=== PATIENT | female | born 1970 | race Two or more races ===

== ENCOUNTER 2021-08-14 06:43 | Day surgery (SDC) | payer OTHER | END 2021-08-14 12:00 | disposition home or self-care (01) | LOC: AMB-ENDOS 06:43 → CIR.AMB 14:00 | PROVIDERS: ATTEND Surgery | DX: R19.4 Change in bowel habit (principal); R14.0 Abdominal distension (gaseous); K30 Functional dyspepsia; K21.9 Gastro-esophageal reflux disease without esophagitis; N94.5 Secondary dysmenorrhea; I10 Essential (primary) hypertension; E03.9 Hypothyroidism, unspecified ==

== ENCOUNTER 2021-08-26 12:45 | Inpatient (IN) | payer OTHER ==
[~2021-08-26] VITALS: Ht 157.5 cm; Wt 0.5 kg
[2021-08-26] MEDS ORDERED: TENORMIN50 M1 PO (15:23)
[2021-08-26] MEDS ORDERED: ZOLOFT50 MG PO (15:23)
[2021-09-07] MEDS ORDERED: ACETAMINOPHEN-1 EAC2 PO (10:29)
[2021-09-07] MEDS ORDERED: CELEBREX200MG PO (10:30)
[2021-09-07] MEDS ORDERED: COLACE100 MG PO (10:30)
[2021-09-07] MEDS ORDERED: TANDEM PLUS CA1 EACH PO (10:32)
== END 2021-09-07 11:38 | disposition home or self-care (01) | DRG 743 ==
LOC: OB/GYN 08-29 09:45 → EDBD 08-29 12:45 → OB/GYN 08-29 12:45 → O/R 09-05 06:42 → OB/GYN 09-05 11:50
PROVIDERS: ADMIT Obstetrics & Gynecology; ATTEND Obstetrics & Gynecology
PROC: 0UT7FZZ Resection of Bilateral Fallopian Tubes, Via Natural or Artificial Opening With Percutaneous Endoscopic Assistance (ICD-10-PCS; 2021-09-05)
PROC: 0UT0FZZ Resection of Right Ovary, Via Natural or Artificial Opening With Percutaneous Endoscopic Assistance (ICD-10-PCS; 2021-09-05)
PROC: 0DNW4ZZ Release Peritoneum, Percutaneous Endoscopic Approach (ICD-10-PCS; 2021-09-05)
PROC: 0UT9FZZ Resection of Uterus, Via Natural or Artificial Opening With Percutaneous Endoscopic Assistance (ICD-10-PCS; principal; 2021-09-05 14:00)
DX: D25.1 Intramural leiomyoma of uterus (principal); D25.2 Subserosal leiomyoma of uterus; N73.9 Female pelvic inflammatory disease, unspecified; Z20.822 Contact with and (suspected) exposure to COVID-19

== ENCOUNTER 2021-09-03 08:07 | Outpatient (CLI) | payer OTHER ==
[~2021-09-03 08:07] MED LIST: TENORMIN50 M1 PO; ZOLOFT50 MG PO
== END 2021-09-03 09:25 | disposition home or self-care (01) ==
LOC: LAB 08:07 → EDBD 08:07 → LAB 09:25
PROVIDERS: ATTEND Obstetrics & Gynecology
DX: Z12.4 Encounter for screening for malignant neoplasm of cervix (principal); Z11.51 Encounter for screening for human papillomavirus (HPV); Z01.419 Encounter for gynecological examination (general) (routine) without abnormal findings; N76.2 Acute vulvitis; D25.2 Subserosal leiomyoma of uterus; N92.4 Excessive bleeding in the premenopausal period; N94.5 Secondary dysmenorrhea; D68.8 Other specified coagulation defects; Z01.411 Encounter for gynecological examination (general) (routine) with abnormal findings

== ENCOUNTER 2021-11-05 09:33 | Outpatient (CLI) | payer OTHER ==
[~2021-11-05 09:33] MED LIST changes: +ACETAMINOPHEN-1 EAC2 PO; +CELEBREX200MG PO; +COLACE100 MG PO; +TANDEM PLUS CA1 EACH PO
== END 2021-11-05 09:34 | disposition home or self-care (01) ==
LOC: LAB 09:33
PROVIDERS: ATTEND Orthopaedic Surgery
DX: D68.9 Coagulation defect, unspecified (principal); E78.2 Mixed hyperlipidemia; N39.0 Urinary tract infection, site not specified; R07.9 Chest pain, unspecified

== ENCOUNTER 2021-11-06 10:50 | Inpatient (IN) | payer OTHER ==
[~2021-11-06] VITALS: Ht 157.5 cm; Wt 72.6 kg
== END 2021-11-16 11:34 | DRG 470 ==
LOC: O/R 11-12 08:28 → SURG 11-12 08:28 → SURH 11-12 08:45 → SURG 11-12 18:57
PROVIDERS: ADMIT Orthopaedic Surgery; ATTEND Orthopaedic Surgery
PROC: B54DZZZ Ultrasonography of Bilateral Lower Extremity Veins (ICD-10-PCS; 2021-11-12)
PROC: 0SRD0J9 Replacement of Left Knee Joint with Synthetic Substitute, Cemented, Open Approach (ICD-10-PCS; principal; 2021-11-12 11:00)
DX: M17.12 Unilateral primary osteoarthritis, left knee (principal); M85.662 Other cyst of bone, left lower leg; I80.252 Phlebitis and thrombophlebitis of left calf muscular vein; I10 Essential (primary) hypertension; Z20.822 Contact with and (suspected) exposure to COVID-19